=== PATIENT | female | born 1990 | race Caucasian/White ===

== ENCOUNTER 2017-02-27 13:05 | Emergency (ER) | payer BC ==
[~2017-02-27] VITALS: Wt 83.5 kg
[~2017-02-27 13:05] MED LIST: DENIES
[2017-02-27] MEDS ORDERED: IBUP-1542 PO (14:46)
[2017-02-27] MEDS ORDERED: HYDR30CR75 PR (14:46)
[2017-02-27] MEDS ORDERED: HYDR-906 PO (14:47)
--- NOTE | 2017-02-27 14:54 | ERD ---
ER Documentation Chief Complaint Date/Time DATE: 02/27/17 TIME: 14:48 Chief Complaint PAIN ALL OVER BODY, WORSE ON VAGINAL AREA, MILD VAG SPOTTING, ONSET 2 DAYS HPI Patient is a 26-year-old female who presents to the emergency department for concerns of pain in her rectal area. Patient states the pain is radiating into her vaginal area and her lower back. Patient does report having a hemorrhoid. Patient states she developed the pain 3 days ago. Patient states the pain is worse when sitting down. Patient states she is unable to sit secondary to pain. Patient reports having 2 tabs 2 hours prior to arrival. Patient does report drinking water. Patient does report straining with bowel movements. Patient states she has also had a bowel movement 2 days ago. Patient denies any rectal bleeding or diarrhea. Patient denies any new sexual partners. Patient denies any fevers, chills, nausea, vomiting or diarrhea. Patient denies any abdominal pain. Patient is currently on her menstrual period. ROS All systems reviewed and are negative except as per history of present illness. Medications Home Meds Active Scripts Hydrocodone/Acetaminophen ([place] 5-325 Tablet) 1 Each Tablet, 1 TAB PO Q6H Y for PAIN, #10 TAB Prov:TIFF MOHAMUD PA-C 02/27/17 Ibuprofen* (Motrin*) 600 Mg Tab, 600 MG PO Q6, #30 TAB Prov:TIFF MOHAMUD PA-C 02/27/17 Hydrocortisone Acetate* (Anusol-HC*) 30 Gm Cream.gm., 1 APPLIC MT TID, #1 TUB Prov:TIFF MOHAMUD PA-C 02/27/17 Reported Medications [Denies] No Conflict Check 11/25/09 Allergies Allergies: Coded Allergies: No Known Drug Allergy (Verified Allergy, Mild, 11/25/09) PMhx/Soc History of Surgery: Yes ( x1) Anesthesia Reaction: No Hx Neurological Disorder: No Hx Respiratory Disorders: No Hx Cardiac Disorders: No Hx Psychiatric Problems: No Hx Miscellaneous Medical Probl: Yes (Anemia) Hx Alcohol Use: No Hx Substance Use: No Hx Tobacco Use: No Smoking Status: Never smoker FmHx Family History: No diabetes Physical Exam Vitals Vital Signs Date Time Temp Pulse Resp B/P Pulse Ox O2 Delivery O2 Flow Rate FiO2 02/27/17 13:08 98.0 103 17 112/73 98 Physical Exam GENERAL: Well-developed, well-nourished female. Appears in no acute distress. Speaking in full sentences HEAD: Normocephalic, atraumatic. EYES: Pupils are equally reactive bilaterally. EOMs grossly intact. No conjunctival erythema. ENT: Moist mucous membranes. No uvula deviation. No kissing tonsils. NECK: Supple. No meningismus. Normal range of motion of the neck. LUNG: Clear to auscultation bilaterally. No rhonchi, wheezing, rales or coarse breath sounds. HEART: Regular rate and rhythm. No murmurs, rubs or gallops. ABDOMEN: No scars, ecchymosis or rashes noted. Soft, nontender, and nondistended. Positive bowel sounds in all four quadrants. No rebound tenderness , no guarding. (-) McBurney's point tenderness. No CVA tenderness. 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 Normal anus with external hemorrhoids versus skin tag noted. Unable to rule out internal hemorrhoids at this time. Bright red blood noted on external rectum likely due to patient's menses. EXTREMITIES: Equal pulses bilaterally. No peripheral clubbing, cyanosis or edema. No unilateral leg swelling. NEUROLOGIC: Alert and oriented. Moving all four extremities without any difficulty. Normal speech. Steady gait. SKIN: Normal color. Warm and dry. No rashes or lesions. Procedures/MDM MEDICAL DECISION MAKING: Patient is a 26 year old female who presents with rectal pain. Patient often reported straining and hard stools. Vital signs were reviewed. Patient is afebrile. Patient was not hypoxic. Patient was hemodynamically stable. Rectal exam revealed external hemorrhoids. Unable to rule out internal hemorrhoids at this time. Low suspicion for perirectal abscess, anal fissure, IBD, pilonidal abscess. Patient offered UA however unable to provide urine sample. Patient understands unable to rule out , ectopic UTI or pyelonephritis at this time. PRESCRIPTION: Anusol cream, ibuprofen, [place] DISCHARGE: At this time, patient is stable for discharge and outpatient management. Patient instructed to increase H20 intake and eat foods high in fiber such as apples, pears, prunes, pulms, bran. Sitz baths advised. I have instructed the patient to follow-up with his/her primary care physician in 1-2 days. I she was advised that she will need to follow-up with a GI specialist. Referral information provided. I have instructed the patient to promptly return to the ER for any new or worsening symptoms including increased pain, fever, nausea, vomiting, weakness or LOC. The patient and/or family expressed understanding of and agreement with this plan. All questions were answered. Home care instructions were provided. Departure Diagnosis: Primary Impression: External hemorrhoid Condition: Stable Patient Instructions: Treating Hemorrhoids: Self-Care Referrals: SANAZ STEWART MD,RADHA MONDRAGON,PEGGY MUÑOZ,VIRAL Jacob MD Additional Instructions: Call your primary care doctor TOMORROW for an appointment during the next 1-2 days.See the doctor sooner or return here if your condition worsens before your appointment time. Patient will need to follow-up with a GI specialist. See referral list. Sitz bath advised Epsom salt. Warm compresses to the affected area advised. TIFF MOHAMUD PA-C February 27, 2017 14:54
== END 2017-02-27 15:00 | disposition home or self-care (01) ==
LOC: FTE 13:05
DX: K64.4 Residual hemorrhoidal skin tags (principal)
CPT/HCPCS: 99283